=== PATIENT | male | born 1955 | race Caucasian/White ===

== ENCOUNTER 2018-04-16 17:27 | Emergency (ER) | payer MEDICAID ==
[2018-04-16] MEDS ORDERED: Alum Hydrox/Mag Hydrox/Simeth 15 ML, Lidocaine 2% 15 ML PO ONE ×2 (18:18)
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
[2018-04-16] MEDS ORDERED: Sodium Chloride 0.9% 1,000 ML IV SCH (18:30)
[2018-04-16] MEDS: Sodium Chloride 0.9% 10 ML Syringe FLUSH PRN ×2 (18:52→19:34)
[2018-04-16] MEDS ORDERED: Morphine 4 MG/ML Syringe IVPUSH ONE (19:10)
[2018-04-16] MEDS ORDERED: Sodium Chloride 0.9% 80 ML IV SCH (19:15)
[2018-04-16] MEDS ORDERED: Iopamidol 612 MG/ML 150 ML Bottle IV SCH (19:15)
[2018-04-16 19:20] VITALS: BP 145/67
[2018-04-16] MEDS ORDERED: Acetaminophen/HYDROcodone 325-5 MG Tab PO ONE (21:16)
== END 2018-04-16 21:42 | disposition home or self-care (01) ==
LOC: JP.ED 17:27
DX: R10.13 Epigastric pain (principal); I10 Essential (primary) hypertension
CPT/HCPCS: 36415; 74177; 80053; 81001; 83605; 83690; 85025; 85610; 86140; 96361; 96374; 99284; A9270; J2270; J7030; J7050

== ENCOUNTER 2018-04-20 10:29 | Inpatient (IN) | payer MEDICAID ==
[~2018-04-20 10:29] MED LIST: Bupivacaine 0.5%/EPINEPHrine 1:200,000 50 ML MDV ONE
[2018-04-20] MEDS ORDERED: Acetaminophen 500 MG Tab PO ONE (10:30)
[2018-04-20] MEDS ORDERED: Ondansetron 4 MG/2 ML SDV ONE (10:50)
[2018-04-20] MEDS ORDERED: Midazolam 1 MG/ML 2 ML SDV ONE (10:50)
[2018-04-20] MEDS ORDERED: Glycopyrrolate 0.2 MG/ML 5 ML MDV ONE (10:50)
[2018-04-20] MEDS ORDERED: fentaNYL 250 MCG/5 ML SDV ONE (10:50)
[2018-04-20] MEDS ORDERED: Neostigmine Methylsulfate 1 MG/ML 5 ML Syringe ONE (10:50)
[2018-04-20] MEDS ORDERED: Propofol 200 MG/20 ML SDV ONE (10:50)
[2018-04-20] MEDS ORDERED: Dexamethasone 4 MG/ML SDV ONE (10:50)
[2018-04-20] MEDS ORDERED: Rocuronium 50 MG/5 ML Vial ONE (10:50)
[2018-04-20] MEDS ORDERED: Dextrose 5%-Lactated Ringers 1,000 ML IV SCH (11:00)
[2018-04-20] MEDS ORDERED: cefOXitin 2 GM in Sodium Chloride 0.9% 50 ML IV ONE (12:00)
[2018-04-20] MEDS ORDERED: Ketamine 500 MG/5 ML MDV IV SCH (12:15)
[2018-04-20] MEDS ORDERED: Ropivacaine 45 ML, Dexamethasone 8 MG, EPINEPHrine 0.4 MG, Sodium Chloride 0.9% 32.6 ML NERVRT SCH ×4 (12:15)
[2018-04-20] MEDS ORDERED: Meropenem 500 MG SDV ONE (13:01)
[2018-04-20] MEDS ORDERED: HYDROmorphone/Normal Saline 15 MG/30 ML PCA IV PRN (14:31)
[2018-04-20] MEDS ORDERED: Naloxone 0.4 MG/ML SDV IV PRN (14:33)
[2018-04-20] MEDS ORDERED: hydrOXYzine HCl 100 MG/2 ML SDV IM ONE (14:39)
[2018-04-20] MEDS ORDERED: fentaNYL 100 MCG/2 ML SDV IVPUSH ONE (14:45)
[2018-04-20] MEDS ORDERED: Ondansetron 4 MG/2 ML SDV IVPUSH PRN (15:32)
[2018-04-20] MEDS: Pantoprazole 40 MG Vial IV SCH (17:11)
[2018-04-20] MEDS: Meropenem 500 MG in Sodium Chloride 0.9% 50 ML IV SCH ×2 (17:54→23:19)
[2018-04-20] MEDS ORDERED: Lidocaine 2% Jelly 10 ML Urojet MUCMEM ONE (23:23)
[2018-04-20] MEDS: Dextrose 5%-Lactated Ringers 1,000 ML IV SCH (23:28)
[2018-04-21] MEDS: Meropenem 500 MG in Sodium Chloride 0.9% 50 ML IV SCH ×4 (05:34→23:55)
[2018-04-21] MEDS: Dextrose 5%-Lactated Ringers 1,000 ML IV SCH ×2 (08:52→18:05)
[2018-04-21] MEDS: Hydrochlorothiazide 25 MG Tab PO SCH (08:53)
[2018-04-21] MEDS: amLODIPine 5 MG Tab PO SCH (08:53)
[2018-04-21] MEDS: Lisinopril 20 MG Tab PO SCH (08:53)
[2018-04-21] MEDS ORDERED: Tamsulosin 0.4 MG Cap.ER PO ONE (09:00)
[2018-04-21] MEDS: Acetaminophen/HYDROcodone 325-5 MG Tab PO PRN ×3 (10:37→18:24)
--- NOTE | 2018-04-21 11:36 | PN ---
DATE OF SERVICE: 04/21/2018 The patient has been afebrile with stable vital signs. Overnight, he did retain urine and had a Jacobs catheter placed. We will start him on Flomax and then most likely get that out tomorrow morning. Otherwise, he does have some bile in the area of the open-ended point of division of the gallbladder neck, as one might expect drain, that should not be a problem. Bilirubin remains normal. Liver function tests are mildly elevated, consistent with the operative findings. We will move up to a regular diet today and will go over to oral pain medication. Start the Flomax, as noted above. He might be ready for discharge home tomorrow. Gram stain on the abscess thus far did not grow anything. We will continue the meropenem empirically. Baldemar Dorman MD /[id number]
[2018-04-21] MEDS ORDERED: Sodium Chloride 0.9% 250 ML IV SCH (12:00)
[2018-04-21] MEDS: Pantoprazole 40 MG Vial IV SCH (17:09)
[2018-04-21] MEDS ORDERED: Tamsulosin 0.4 MG Cap.ER PO SCH (21:00)
[2018-04-22] MEDS: Acetaminophen/HYDROcodone 325-5 MG Tab PO PRN ×3 (00:51→09:43)
[2018-04-22] MEDS: Dextrose 5%-Lactated Ringers 1,000 ML IV SCH (02:57)
[2018-04-22] MEDS: Meropenem 500 MG in Sodium Chloride 0.9% 50 ML IV SCH (05:26)
[2018-04-22] MEDS: amLODIPine 5 MG Tab PO SCH (08:53)
[2018-04-22] MEDS: Lisinopril 20 MG Tab PO SCH (08:53)
[2018-04-22] MEDS: Hydrochlorothiazide 25 MG Tab PO SCH (08:53)
[2018-04-22 10:53] VITALS: BP 134/65
[2018-04-22] MEDS ORDERED: Magnesium Hydroxide 400 MG/5 ML Susp 30 ML Cup PO PRN (11:03)
[2018-04-22] MEDS ORDERED: Pantoprazole 40 MG Tab.CR PO SCH (16:30)
--- NOTE | 2018-04-25 11:41 | DISCH ---
FINAL DIAGNOSES: 1. Severe acute on chronic cholecystitis and cholelithiasis. 2. Pericholecystic abscess. 3. Inflammatory adherence of gallbladder fundus to hepatic flexure of colon. 4. Incarcerated incisional hernia. 5. History of hypertension. OPERATION/PROCEDURES: Operative procedure was done on 04/20, diagnostic laparoscopy with: 1. Cholecystectomy (subtotal). 2. Drainage of pericholecystic abscess. 3. Repair of deserosalization of hepatic flexure of colon. 4. Repair of incarcerated incisional hernia. SUMMARY: This is a 62-year-old presenting here with biliary colic type symptoms and CT scan showing thickened gallbladder wall and cholelithiasis. On the date of admission, the patient underwent a diagnostic laparoscopy, was found to have incisional hernia at previous laparoscopic trocar site used for an appendectomy in the periumbilical area. The patient had a strikingly severe cholecystitis. This was an acute cholecystitis, but with a significant chronic component such that there was severe scarring and thickening of the gallbladder to the adjacent structures and the cystohepatic triangle area was essentially non dissectible. The patient had pericholecystic abscess, which was drained. The cultures on this are still pending with some cultures presently being prepared. He also had a dense inflammatory adherence of hepatic flexure of the colon to the fundus of the gallbladder. Because of the cystohepatic triangle not being safely dissectible, the patient had a subtotal cholecystectomy leaving the junction of the gallbladder neck as it entered into the cystic duct opening. This was drained with 2 Oscar-Martínez drains. At first, he had some bile present. On postop day 2 today, there is no bile present in either drain. The total bilirubin on postop day 1 was 0.6. Chemistries today are still pending. Overall, the patient has done well at this point, and will be discharged home with both MIRI drains in place. We will see him back on 04/28/2018. He will continue his home medications plus Augmentin 875 mg b.i.d. x5 days and [place] 5/325 mg, 1 to 2 tabs q.4 hours p.r.n. pain, #40. The patient does have an open epigastric trocar site, which was left open due to contamination of the gallbladder being pulled through that area and he will be dressing that daily with 4x4s.
--- NOTE | 2018-04-28 11:10 | OR ---
DATE OF PROCEDURE: 04/20/2018 PREOPERATIVE DIAGNOSIS: Acute cholecystitis. POSTOPERATIVE DIAGNOSES: 1. Severe acute and chronic cholecystitis and cholelithiasis. 2. Pericholecystic abscess. 3. Inflammatory adherence of gallbladder fundus to hepatic flexure of colon. 4. Incarcerated incisional hernia. OPERATIVE PROCEDURE: Diagnostic laparoscopy with: 1. Cholecystectomy (subtotal) (965506). 2. Drainage of pericholecystic abscess (70124). 3. Repair of area of deserosalization of hepatic flexure of colon (17060). 4. Laparoscopic repair of incarcerated incisional hernia ([id number]). ANESTHESIA: General. INDICATION FOR PROCEDURE: This 62-year-old is presenting with a picture of cholecystitis and cholelithiasis. Plan is to proceed with a diagnostic laparoscopy, laparotomy if necessary, and cholecystectomy with other procedures as indicated based on operative findings. Potential risks including bleeding, infection, injury to underlying viscera, problems with stones migrating in the common bile duct requiring additional procedure for correction, possibility of persistent symptoms postoperatively, as well as remote possibility of cardiopulmonary, septic, or hemorrhagic complications leading to were discussed, and the patient wishes to proceed. DETAILS OF PROCEDURE: The patient was taken to the operating room and placed in a supine position. After general endotracheal anesthesia was induced, he was converted to a lithotomy position. Jacobs catheter was inserted and the abdomen prepped and draped. At 15 cm inferior and 5 cm left of xiphoid process, transverse incision was made and the peritoneal cavity entered under direct vision with an Optiview trocar and inflated to 15 mmHg pressure with CO2. Laparoscope was then reinserted. No underlying trocar insertion site injuries were seen. Following this, appearing down toward the umbilicus, the patient was noted to have an incisional hernia. This appeared to be just below the umbilicus itself likely related to previous incision used for laparoscopic appendectomy. This contained some incarcerated preperitoneal fat. Transverse incision over that area was then made and carried down through the skin and subcutaneous tissue and incarcerated component of the hernia and then excised through the defect and a 12 mm trocar was easily passed , and then 2 additional 5 mm trocars were placed in the right subcostal area. Upon appearing up toward the gallbladder, this was entirely encased by omentum. As one pulled the omentum off with the aid of harmonic Scalpel, purulence was noted both anterior to the gallbladder, as well as posterior. Cultures of this were obtained and after the abscess was drained, gallbladder was then opened and as much bile removed as possible. During the course of dissection, it was noted that the patient had essentially fusion of the gallbladder fundus to the hepatic flexure of colon as this was dissected free, there was an obvious area of deserosalization of the colon, which was then repaired with a RUDOLPH stapler, this being a purple load and this subsequently was reinforced also with some fibrin sealant. As one began dissecting down toward the fundus of the gallbladder, it became evident that the entire area of the cystic hepatic triangle and adjacent common bile duct were entirely encased in a dense scar formation indicating this was probably not a first attack of cholecystitis. As one continued to dissect down the gallbladder neck, it became evident that this was completely unsafe given this procedure either via laparoscopic or open approach and we then opted to proceed then with a subtotal cholecystectomy leaving a small amount of gallbladder neck and adjacent cystic duct/gallbladder junction in place. The gallbladder was divided at that level leaving perhaps 0.5 cm rim of gallbladder neck as it joined into the cystic duct. Multiple stones were present and these were sequentially removed. No stones were left in the abdomen at the conclusion of the procedure. No bile leaks were noted at this point. The specimen was then retrieved. The epigastric trocar site and had been widened somewhat to allow removal of the gallbladder. At that point, no further problems were noted per se. At this point, sutures were placed in the fascia at the epigastric trocar site. Total of four sutures were used. These were not tied yet. Then, placement of trocar into the epigastric site where the camera was moved up and the laparoscopic suture passer was then used to repair the incisional hernia located just below the umbilicus, these sutures were then placed with a transverse oriented closure with 0 Vicryl stitch. At that point, 2 Oscar-Martínez drains were then placed one along the area lateral to the liver and the other directly over the area of the gallbladder bed to drain any bile leak that might develop postoperatively, as well as the area of the abscess formation. The trocars were then removed and peritoneal cavity deflated. The sutures of the fascia sites were then closed and the skin at the epigastric site was packed open with iodoform gauze. The umbilical site was felt to be satisfactory to close the skin with 4-0 Vicryl stitch and the drains were affixed with 4-0 Vicryl stitch as well. The patient was taken to the recovery room in satisfactory condition. There were no evident complications. Baldemar Dorman MD /[id number]
== END 2018-04-22 11:45 | disposition home or self-care (01) | DRG 418 ==
LOC: JP.SDSSCHI 10:29 → JP.SDS 10:30 → EDSTATUS 12:00 → JP.MS 15:15
PROVIDERS: ADMIT Surgery; ATTEND Surgery
PROC: 0FB44ZZ Excision of Gallbladder, Percutaneous Endoscopic Approach (ICD-10-PCS; principal; 2018-04-20)
PROC: 0WQF4ZZ Repair Abdominal Wall, Percutaneous Endoscopic Approach (ICD-10-PCS; 2018-04-20)
PROC: 0D9W4ZX Drainage of Peritoneum, Percutaneous Endoscopic Approach, Diagnostic (ICD-10-PCS; 2018-04-20)
PROC: 0DL Gastrointestinal System, Occlusion (ICD-10-PCS; 2018-04-20)
PROC: 0F944ZX Drainage of Gallbladder, Percutaneous Endoscopic Approach, Diagnostic (ICD-10-PCS; 2018-04-20)
DX: K80.12 Calculus of gallbladder with acute and chronic cholecystitis without obstruction (principal); K43.0 Incisional hernia with obstruction, without gangrene; K66.0 Peritoneal adhesions (postprocedural) (postinfection); K82.8 Other specified diseases of gallbladder; I10 Essential (primary) hypertension; H91.90 Unspecified hearing loss, unspecified ear; R33.9 Retention of urine, unspecified; S36.59 Other injury of colon
CPT/HCPCS: 36415; 51702; 80053; 83735; 83880; 84100; 85025; 85027; 87070; 87075; 87205; 88302; 88304; 94762; A9270-GY; C9113; J0171; J0694; J1100; J1170; J2185; J2250; J2405; J2704; J2710; J2795; J3010; J3410; J3490; J7042; J7050

== ENCOUNTER 2020-05-13 13:00 | Emergency (ER) | payer MEDICAID, OTHER ==
[2020-05-13 14:20] VITALS: BP 135/68; PULSE 73
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
[2020-05-13] MEDS ORDERED: Morphine 4 MG/ML Syringe IVPUSH ONE (14:37)
[2020-05-13] MEDS ORDERED: Sodium Chloride 0.9% 10 ML Syringe FLUSH PRN (14:37)
[2020-05-13] MEDS ORDERED: Ondansetron 4 MG/2 ML SDV IVPUSH ONE (14:37)
[2020-05-13] MEDS ORDERED: Acetaminophen/oxyCODONE 325-5 MG Tab PO PRN (16:03)
--- NOTE | 2020-05-14 10:25 | CR ---
Tibia Fibula Lt, CLINICAL HISTORY: Pain, deformity FINDINGS: There is a comminuted displaced fracture of the distal tibia. There is also a slightly displaced fracture of the proximal fibula IMPRESSION: Fractures of proximal fibula and distal tibia Ankle Min 3V Lt FINDINGS: The soft tissues are swollen. There is a comminuted displaced fracture of the distal tibia. There is widening of the ankle mortise. There is a oblique nondisplaced fracture of the distal fibula with some lateral subluxation. IMPRESSION: Fracture dislocation distal tib-fib
== END 2020-05-13 17:09 | disposition home or self-care (01) ==
LOC: JP.ED 14:01
DX: S82.832A Other fracture of upper and lower end of left fibula, initial encounter for closed fracture (principal); S82.302A Unspecified fracture of lower end of left tibia, initial encounter for closed fracture; I10 Essential (primary) hypertension; Z79.899 Other long term (current) drug therapy; V89.9XXA Person injured in unspecified vehicle accident, initial encounter
CPT/HCPCS: 29505; 73590; 73610; 96374; 96375; 99283; A9270; J2270; J2405

== ENCOUNTER 2020-05-16 07:26 | Day surgery (SDC) | payer OTHER ==
[~2020-05-16 07:26] MED LIST changes: +Bupivacaine 0.5% 30 ML SDV ONE; -Bupivacaine 0.5%/EPINEPHrine 1:200,000 50 ML MDV ONE; +Dexamethasone 4 MG/ML SDV ONE; +Glycopyrrolate 0.2 MG/ML 5 ML MDV ONE; +Neostigmine Methylsulfate 1 MG/ML 5 ML Syringe ONE; +Ondansetron 4 MG/2 ML SDV ONE; +Propofol 200 MG/20 ML SDV ONE; +Rocuronium 50 MG/5 ML Vial ONE; +Succinylcholine 200 MG/10 ML MDV ONE
[2020-05-16] MEDS ORDERED: fentaNYL 250 MCG/5 ML SDV ONE (07:28)
[2020-05-16] MEDS ORDERED: Midazolam 1 MG/ML 2 ML SDV ONE (07:43)
[2020-05-16] MEDS ORDERED: Lactated Ringers 1,000 ML IV SCH (07:45)
[2020-05-16] MEDS ORDERED: Nozin Nasal Sanitizer NASBOTH ONE (07:45)
[2020-05-16] MEDS ORDERED: ceFAZolin 2 GM in Premix Bag 1 BAG IV ONE (08:30)
[2020-05-16] MEDS ORDERED: Propofol 200 MG/20 ML SDV ONE ×2 (09:04→09:23)
[2020-05-16] MEDS ORDERED: Lactated Ringers 1,000 ML ONE (09:45)
[2020-05-16] MEDS ORDERED: Acetaminophen/HYDROcodone 325-5 MG Tab PO PRN (10:40)
[2020-05-16] MEDS ORDERED: Acetaminophen/oxyCODONE 325-5 MG Tab PO PRN (10:40)
[2020-05-16] MEDS ORDERED: Aluminum Hydroxide/Magnesium Hydroxide/Simethicone Susp 30 ML Cup PO PRN (10:40)
[2020-05-16] MEDS ORDERED: Magnesium Hydroxide 400 MG/5 ML Susp 30 ML Cup PO PRN (10:40)
[2020-05-16] MEDS ORDERED: Ondansetron 4 MG/2 ML SDV IVPUSH PRN (10:40)
[2020-05-16] MEDS ORDERED: Morphine 2 MG/ML SYRINGE IVPUSH PRN (10:40)
[2020-05-16] MEDS: Sodium Chloride 0.9% 1,000 ML IV SCH ×2 (13:59→22:46)
[2020-05-16] MEDS: ceFAZolin 1 GM in Premix Bag 1 BAG IV SCH ×2 (16:11→23:27)
--- NOTE | 2020-05-16 16:43 | OR ---
DATE OF PROCEDURE: 05/16/2020 SURGEON: Arsen Pierre MD PREOPERATIVE DIAGNOSIS: Comminuted, displaced intra-articular fracture, left tibial plafond, and nondisplaced proximal fibula fracture. POSTOPERATIVE DIAGNOSIS: Comminuted, displaced intra-articular fracture, left tibial plafond, and nondisplaced proximal fibula fracture. PROCEDURE: Open reduction and internal fixation, left distal tibia. ANESTHESIA: Spinal with sedation. INDICATIONS: Mr. Tong is a 64-year-old gentleman who sustained a fall from approximately 4 feet onto his left leg resulting in a comminuted fracture of his left distal tibia. This consists of intra-articular extension with comminution at the junction of the distal shaft and metaphysis in the tibial plafond. Taken to the operating room for open reduction and internal fixation. Risks, benefits, potential complications of the procedure were discussed. DESCRIPTION OF PROCEDURE: After adequate anesthesia was obtained, patient was placed supine with a tourniquet about the left upper thigh. Left leg was prepped and draped in a sterile fashion. Leg was exsanguinated, tourniquet inflated to 300 mmHg pressure. Incision was made slightly medial of midline over the distal tibia and medial malleolus. It was carried down through the subcutaneous tissue. The fracture was identified. Traction was placed on the foot and fracture hematoma was cleared to better visualize the fragments. A small comminuted fragment of the anterior cortex was present, which was devoid of soft tissue attachment. This was initially left in place and manipulated around. Main fracture fragment was reduced and held in place with a bone-holding clamp. The intra- articular fragment was then reduced and held with a clamp. The small cortical piece was manipulated into position and fluoroscopic images were used to assess the reduction. The tibial articular surface was reconstructed well. There was some mild displacement of the more posterior fragment, which could not be directly visualized but did not compromise the overall reduction, and it was felt that attempt at reducing this would require stripping the soft tissues and devascularizing a portion of the bone. A single 3.5 cortical screw was placed anterior posterior, securing the distal fragment and this was placed in compression over drilling the anterior cortex. A Synthes medial distal tibial contoured plate was then selected. This was initially secured distally with locking screws. Proximal fixation was then obtained with 3.5 cortical screws in compression. Excellent fixation was obtained with all of the screws. The wound was irrigated. After evaluating the reduction and comminution, there was some loss of structure of the trabecular bone and this was augmented with crushed cancellous graft. The small cortical fragment which again was free-floating, was not utilized, and was removed as it was completely devascularized and could potentially be a source of nonhealing and sequestration. It was irrigated once again and then closed with 0 Vicryl in the deep layer, 2-0 Vicryl, and surgical malika. The wound was covered with Xeroform, sterile 4x4s, and cast padding, and a well-padded AO plaster splint was applied with the foot in neutral position. The patient tolerated the procedure well. There were no complications. Taken from the operating room in stable condition. Arsen Pierre MD /[id number] MTDD
[2020-05-16] MEDS: Ketorolac 30 MG/ML SDV IVPUSH SCH ×2 (17:42→23:19)
[2020-05-16] MEDS: Docusate Sodium 100 MG Cap PO SCH (20:15)
[2020-05-16] MEDS: oxyCODONE 5 MG Tab PO PRN (23:18)
[2020-05-17] MEDS: Ketorolac 30 MG/ML SDV IVPUSH SCH ×2 (05:10→11:02)
[2020-05-17] MEDS: oxyCODONE 5 MG Tab PO PRN ×2 (08:07→15:26)
[2020-05-17] MEDS: Docusate Sodium 100 MG Cap PO SCH (08:07)
[2020-05-17] MEDS ORDERED: Aspirin 81 MG Tab.EC PO SCH (09:00)
[2020-05-17] MEDS ORDERED: Lisinopril 20 MG Tab PO SCH (09:00)
[2020-05-17] MEDS ORDERED: ATORVASTATIN PO SCH (09:00)
[2020-05-17] MEDS ORDERED: [UNRECOGNIZED DRUG - OTHER] PO SCH (09:00)
[2020-05-17] MEDS ORDERED: AMLODIPINE PO SCH (09:00)
[2020-05-17] MEDS ORDERED: Hydrochlorothiazide 25 MG Tab PO SCH (09:00)
[2020-05-17] MEDS ORDERED: amLODIPine 5 MG Tab PO SCH (09:00)
[2020-05-17 14:26] VITALS: BP 129/61; PULSE 88
== END 2020-05-17 16:00 | disposition home or self-care (01) ==
LOC: JP.SDS 07:26 → JP.MS 10:40 → JP.SDS 05-17 16:00
PROVIDERS: ATTEND Specialist
DX: S82.392A Other fracture of lower end of left tibia, initial encounter for closed fracture (principal); S82.832A Other fracture of upper and lower end of left fibula, initial encounter for closed fracture; Z87.891 Personal history of nicotine dependence; W17.89XA Other fall from one level to another, initial encounter
CPT/HCPCS: 27827; 36415; 80053; 85027; 93005; 93010; 97110; 97116; 97161; 97165; 97530; 97535; A9270; C1713; J0330; J0690; J1885; J2250; J2270; J2704; J3010; J7030; J7120; J1100; J2405; J2710; J3490

== ENCOUNTER 2020-11-14 08:26 | Inpatient (IN) | payer OTHER, MEDICARE ==
[~2020-11-14 08:26] MED LIST changes: -Dexamethasone 4 MG/ML SDV ONE; -Glycopyrrolate 0.2 MG/ML 5 ML MDV ONE; +Midazolam 1 MG/ML 2 ML SDV ONE; -Neostigmine Methylsulfate 1 MG/ML 5 ML Syringe ONE; -Ondansetron 4 MG/2 ML SDV ONE; -Rocuronium 50 MG/5 ML Vial ONE; -Succinylcholine 200 MG/10 ML MDV ONE; +fentaNYL 100 MCG/2 ML SDV ONE
[2020-11-14] MEDS ORDERED: Lactated Ringers 1,000 ML IV SCH (09:00)
[2020-11-14] MEDS ORDERED: ceFAZolin 2 GM in Premix Bag 1 BAG IV ONE (09:00)
[2020-11-14] MEDS ORDERED: Nozin Nasal Sanitizer NASBOTH ONE (09:00)
[2020-11-14] MEDS ORDERED: Propofol 200 MG/20 ML SDV ONE ×5 (11:00→13:30)
[2020-11-14] MEDS ORDERED: fentaNYL 100 MCG/2 ML SDV ONE ×3 (11:29→13:04)
[2020-11-14] MEDS ORDERED: Lactated Ringers 1,000 ML ONE ×2 (13:58)
[2020-11-14] MEDS ORDERED: Ondansetron 4 MG/2 ML SDV IVPUSH PRN (14:15)
[2020-11-14] MEDS ORDERED: Sodium Chloride 0.9% 1,000 ML IV SCH (14:15)
[2020-11-14] MEDS ORDERED: Acetaminophen/HYDROcodone 325-5 MG Tab PO PRN (14:15)
[2020-11-14] MEDS ORDERED: ceFAZolin 1 GM in Sodium Chloride 0.9% 50 ML IV SCH (14:15)
[2020-11-14] MEDS ORDERED: Magnesium Hydroxide 400 MG/5 ML Susp 30 ML Cup PO PRN (14:15)
[2020-11-14] MEDS ORDERED: Gabapentin 300 MG Cap PO SCH (14:30)
[2020-11-14] MEDS: Acetaminophen/oxyCODONE 325-5 MG Tab PO PRN ×2 (16:20→20:14)
[2020-11-14] MEDS: Gabapentin 300 MG Cap PO SCH ×2 (17:08→21:09)
[2020-11-14] MEDS: Morphine 2 MG/ML SYRINGE IVPUSH PRN (18:00)
[2020-11-14] MEDS: ceFAZolin 1 GM in Premix Bag 1 BAG IV SCH (18:01)
[2020-11-14] MEDS ORDERED: Calcium Carbonate 500 MG Tab.Chew PO PRN (20:03)
[2020-11-14] MEDS: Docusate Sodium 100 MG Cap PO SCH (20:18)
[2020-11-14] MEDS: Nozin Nasal Sanitizer NASBOTH SCH (20:34)
[2020-11-15] MEDS: Acetaminophen/oxyCODONE 325-5 MG Tab PO PRN ×5 (00:58→20:08)
[2020-11-15] MEDS: ceFAZolin 1 GM in Premix Bag 1 BAG IV SCH ×2 (01:39→10:41)
[2020-11-15] MEDS: Gabapentin 300 MG Cap PO SCH ×4 (05:18→21:15)
[2020-11-15] MEDS ORDERED: AMLODIPINE PO SCH (09:00)
[2020-11-15] MEDS ORDERED: ATORVASTATIN PO SCH (09:00)
[2020-11-15] MEDS ORDERED: [UNRECOGNIZED DRUG - OTHER] PO SCH (09:00)
[2020-11-15] MEDS: Nozin Nasal Sanitizer NASBOTH SCH ×2 (09:02→20:12)
[2020-11-15] MEDS: Docusate Sodium 100 MG Cap PO SCH ×2 (09:02→20:12)
[2020-11-15] MEDS: Rosuvastatin 10 MG Tab PO SCH (09:02)
[2020-11-15] MEDS: Enoxaparin 30 MG/0.3 ML Syringe SUBCUT SCH (09:03)
[2020-11-15] MEDS: amLODIPine 5 MG Tab PO SCH (09:04)
[2020-11-15] MEDS: Lisinopril 20 MG Tab PO SCH (09:04)
[2020-11-15] MEDS: Acetaminophen 325 MG Tab PO PRN (09:31)
[2020-11-15] MEDS: Morphine 2 MG/ML SYRINGE IVPUSH PRN (10:59)
--- NOTE | 2020-11-15 12:31 | PCM.SURGPN ---
- General Info Date of Service: 11/15/20 Date of Surgery/Procedure: 11/14/20 POD#: 1 Post-Op Diagnosis: Left tibial plafond nonunion fracture ORIF, hardware removal, and L iliac bone graft Functional Status: Reports: Tolerating Diet, Urinating - Review of Systems General: Reports: No Symptoms HEENT: Reports: No Symptoms Pulmonary: Reports: No Symptoms Cardiovascular: Reports: No Symptoms Gastrointestinal: Reports: No Symptoms Genitourinary: Reports: No Symptoms Musculoskeletal: Reports: Leg Pain (left ), Foot Pain (left ), Joint Pain (left hip, left ankle ) Skin: Reports: No Symptoms Neurological: Reports: No Symptoms Psychiatric: Reports: No Symptoms - Patient Data Vitals - Most Recent: Last Vital Signs Temp 100.1 F 11/15/20 11:22 Pulse 77 11/15/20 11:22 Resp 16 11/15/20 11:22 BP 119/55 L 11/15/20 11:22 Pulse Ox 87 L 11/15/20 11:22 Weight - Most Recent: 194 lb I&O - Last 24 Hours: Intake & Output 11/14/20 11/15/20 11/15/20 22:59 06:59 14:59 Intake Total 529 1308 266 Output Total 310 570 100 Balance 219 738 166 Med Orders - Current: Current Medications Acetaminophen (Acetaminophen 325 Mg Tab) 650 mg PO Q4H PRN PRN Reason: Pain/Fever Last Admin: 11/15/20 09:31 Dose: 650 mg Documented by: Hydrocodone Bitart/Acetaminophen (Acetaminophen/Hydrocodone 325-5 Mg Tab) 1 tab PO Q4H PRN PRN Reason: Pain (mild 1-3) Amlodipine Besylate (Amlodipine 5 Mg Tab) 10 mg PO DAILY [facility] Last Admin: 11/15/20 09:04 Dose: 10 mg Documented by: Bandage/Support Products (Nozin Nasal Global Marketing Manager) 1 applic NASBOTH BID [facility] Last Admin: 11/15/20 09:02 Dose: 1 applic Documented by: Calcium Carbonate/Glycine (Calcium Carbonate 500 Mg Tab.Chew) 500 mg PO Q2H PRN PRN Reason: Indigestion Last Admin: 11/14/20 20:14 Dose: 500 mg Documented by: Docusate Sodium (Docusate Sodium 100 Mg Cap) 100 mg PO BID [facility] Last Admin: 11/15/20 09:02 Dose: 100 mg Documented by: Enoxaparin Sodium (Enoxaparin 30 Mg/0.3 Ml Syringe) 30 mg SUBCUT DAILY [facility] Last Admin: 11/15/20 09:03 Dose: 30 mg Documented by: Gabapentin (Gabapentin 300 Mg Cap) 300 mg PO QID [facility] Last Admin: 11/15/20 09:05 Dose: 300 mg Documented by: Sodium Chloride (Normal Saline) 1,000 mls @ 125 mls/hr IV ASDIRECTED [facility] Last Admin: 11/14/20 22:47 Dose: 125 mls/hr Documented by: Lisinopril (Lisinopril 20 Mg Tab) 20 mg PO DAILY [facility] Last Admin: 11/15/20 09:04 Dose: 20 mg Documented by: Magnesium Hydroxide (Magnesium Hydroxide 400 Mg/5 Ml Susp 30 Ml Cup) 30 ml PO BID PRN PRN Reason: Constipation Morphine Sulfate (Morphine 2 Mg/Ml Syringe) 1 mg IVPUSH Q1H PRN PRN Reason: Breakthrough Pain Last Admin: 11/15/20 10:59 Dose: 1 mg Documented by: Ondansetron HCl (Ondansetron 4 Mg/2 Ml Sdv) 4 mg IVPUSH Q4H PRN PRN Reason: Nausea/Vomiting Oxycodone/Acetaminophen (Acetaminophen/Oxycodone 325-5 Mg Tab) 1 - 2 tab PO Q4H PRN PRN Reason: Pain Last Admin: 11/15/20 07:33 Dose: 1 tab Documented by: Rosuvastatin Calcium (Rosuvastatin 10 Mg Tab) 10 mg PO DAILY [facility] Last Admin: 11/15/20 09:02 Dose: 10 mg Documented by: Discontinued Medications Bandage/Support Products (Nozin Nasal Global Marketing Manager) 1 applic NASBOTH ONETIME ONE Stop: 11/14/20 09:01 Last Admin: 11/14/20 09:09 Dose: 1 applic Documented by: Bupivacaine HCl (Bupivacaine 0.5% 30 Ml Sdv) Confirm Administered Dose 30 ml .ROUTE .STK-MED ONE Stop: 11/14/20 07:02 Last Admin: 11/14/20 13:42 Dose: 30 ml Documented by: Fentanyl (Fentanyl 100 Mcg/2 Ml Sdv) Confirm Administered Dose 100 mcg .ROUTE .STK-MED ONE Stop: 11/14/20 08:06 Fentanyl (Fentanyl 100 Mcg/2 Ml Sdv) Confirm Administered Dose 100 mcg .ROUTE .STK-MED ONE Stop: 11/14/20 11:30 Fentanyl (Fentanyl 100 Mcg/2 Ml Sdv) Confirm Administered Dose 100 mcg .ROUTE .STK-MED ONE Stop: 11/14/20 12:09 Fentanyl (Fentanyl 100 Mcg/2 Ml Sdv) Confirm Administered Dose 100 mcg .ROUTE .STK-MED ONE Stop: 11/14/20 13:05 Cefazolin Sodium/Dextrose 2 gm (/ Premix) 50 mls @ 100 mls/hr IV ONETIME ONE Stop: 11/14/20 09:29 Last Admin: 11/14/20 10:20 Dose: 100 mls/hr Documented by: Lactated Ringer's (Ringers, Lactated) 1,000 mls @ 75 mls/hr IV ASDIRECTED [facility] Last Admin: 11/14/20 09:10 Dose: 75 mls/hr Documented by: Lactated Ringer's (Ringers, Lactated) Confirm Administered Dose 1,000 mls @ as directed .ROUTE .STK-MED ONE Stop: 11/14/20 13:59 Lactated Ringer's (Ringers, Lactated) Confirm Administered Dose 1,000 mls @ as directed .ROUTE .STK-MED ONE Stop: 11/14/20 13:59 Cefazolin Sodium/Dextrose 1 gm (/ Premix) 50 mls @ 100 mls/hr IV Q8H [facility] Stop: 11/15/20 10:59 Last Admin: 11/15/20 10:41 Dose: 100 mls/hr Documented by: Midazolam HCl (Midazolam 1 Mg/Ml 2 Ml Sdv) Confirm Administered Dose 2 mg .ROUTE .STK-MED ONE Stop: 11/14/20 08:06 Propofol (Propofol 200 Mg/20 Ml Sdv) Confirm Administered Dose 200 mg .ROUTE .STK-MED ONE Stop: 11/14/20 08:06 Propofol (Propofol 200 Mg/20 Ml Sdv) Confirm Administered Dose 200 mg .ROUTE .STK-MED ONE Stop: 11/14/20 11:01 Propofol (Propofol 200 Mg/20 Ml Sdv) Confirm Administered Dose 200 mg .ROUTE .STK-MED ONE Stop: 11/14/20 11:31 Propofol (Propofol 200 Mg/20 Ml Sdv) Confirm Administered Dose 200 mg .ROUTE .STK-MED ONE Stop: 11/14/20 12:09 Propofol (Propofol 200 Mg/20 Ml Sdv) Confirm Administered Dose 200 mg .ROUTE .STK-MED ONE Stop: 11/14/20 12:49 Propofol (Propofol 200 Mg/20 Ml Sdv) Confirm Administered Dose 200 mg .ROUTE .STK-MED ONE Stop: 11/14/20 13:31 - Exam Wound/Incisions: Dressing Dry and Intact General: Alert, Oriented, Cooperative Extremities: Normal Capillary Refill (left foot ), Joint Swelling, Leg Pain (left ), Limited Range of Motion Skin: Dry, Intact Neurological: No New Focal Deficit Psy/Mental Status: Alert, Normal Affect, Normal Mood Sepsis Event Note - Evaluation Sepsis Screening Result: No Definite Risk - Focused Exam Vital Signs: Vital Signs Temp Temp Pulse Resp BP BP Pulse Ox 11/15/20 11:22 100.1 F 77 16 119/55 L 87 L 11/15/20 10:01 100.1 F 11/15/20 09:04 118/51 L 11/15/20 08:19 99.7 F 83 20 131/57 L 87 L 11/15/20 03:00 98.7 F 77 16 114/51 L 95 - Problem List & Annotations (1) H/O bone graft SNOMED Code(s): 066519893, 365193274 Code(s): Z98.890 - OTHER SPECIFIED POSTPROCEDURAL STATES Status: Acute Current Visit: Yes Annotation/Comment:: L iliac crest autologous bone graft (2) Status post hardware removal SNOMED Code(s): 015988019, 091760182 Code(s): Z98.890 - OTHER SPECIFIED POSTPROCEDURAL STATES Status: Acute Current Visit: Yes Annotation/Comment:: L ankle hardware removal from surgery 05/16/20 (3) Status post ORIF of fracture of ankle SNOMED Code(s): 348161006 Code(s): Z98.890 - OTHER SPECIFIED POSTPROCEDURAL STATES; Z87.81 - PERSONAL HISTORY OF (HEALED) TRAUMATIC FRACTURE Status: Acute Current Visit: Yes Annotation/Comment:: L ankle - Problem List Review Problem List Initiated/Reviewed/Updated: Yes - My Orders Last 24 Hours: Active Orders 24 hr Category Date Time Status Patient Status [ADT] Routine ADT 11/14/20 14:16 Active Antiembolic Devices [RC] .Routine Care 11/14/20 14:17 Active Head of Bed Elevation [RC] ASDIRECTED Care 11/14/20 14:16 Active Intake and Output [RC] QSHIFT Care 11/14/20 14:16 Active May Shower [RC] ASDIRECTED Care 11/14/20 14:16 Active Neurovascular Check [RC] Q4H Care 11/14/20 14:16 Active Oxygen Therapy [RC] .PRN Care 11/14/20 14:16 Active Vital Signs [RC] Q4H Care 11/14/20 14:16 Active Wound Care [RC] Q12H Care 11/14/20 14:16 Active Consult to Physical Therapy [PT Evaluation and Cons 11/15/20 08:45 Active Treatment] [CONS] Routine Regular Diet [DIET] Diet 11/14/20 Lunch Active Acetaminophen [TylenoL] Med 11/14/20 14:15 Active 650 mg PO Q4H PRN Acetaminophen/HYDROcodone [[place] 325-5 MG] Med 11/14/20 14:15 Active 1 tab PO Q4H PRN Acetaminophen/oxyCODONE [Percocet 325-5 MG] Med 11/14/20 14:15 Active 1 - 2 tab PO Q4H PRN Calcium Carbonate [Tums] Med 11/14/20 20:03 Active 500 mg PO Q2H PRN Docusate Sodium [Colace] Med 11/14/20 21:00 Active 100 mg PO BID Enoxaparin [Lovenox] Med 11/15/20 09:00 Active 30 mg SUBCUT DAILY Gabapentin [Neurontin] Med 11/14/20 16:30 Active 300 mg PO QID Magnesium Hydroxide [Milk of Magnesia] Med 11/14/20 14:15 Active 30 ml PO BID PRN Morphine Med 11/14/20 14:15 Active 1 mg IVPUSH Q1H PRN Nozin [ Nasal Global Marketing Manager] Med 11/14/20 21:00 Active 1 applic NASBOTH BID Ondansetron [Zofran] Med 11/14/20 14:15 Active 4 mg IVPUSH Q4H PRN Rosuvastatin [Crestor] Med 11/15/20 09:00 Active 10 mg PO DAILY Sodium Chloride 0.9% [Normal Saline] 1,000 ml Med 11/14/20 14:15 Active IV ASDIRECTED amLODIPine [Norvasc] Med 11/15/20 09:00 Active 10 mg PO DAILY lisinopriL [Prinivil] Med 11/15/20 09:00 Active 20 mg PO DAILY Antiembolic Hose [OM.PC] Routine Oth 11/14/20 14:16 Ordered DVT/VTE Prophylaxis Reflex [OM.PC] Routine Oth 11/14/20 14:16 Ordered Ice Therapy [OM.PC] Per Unit Routine Oth 11/14/20 14:16 Ordered Medication Continuation Instructions [OM.PC] Per Unit Oth 11/14/20 14:16 Ordered Routine Oral Care [OM.PC] Routine Oth 11/14/20 14:16 Ordered Sequential Compression Device [OM.PC] Routine Oth 11/14/20 14:16 Ordered Weight bearing status [OM.PC] Routine Oth 11/14/20 14:22 Ordered Resuscitation Status Routine Resus Stat 11/14/20 14:15 Ordered Medication Orders Acetaminophen (Acetaminophen 325 Mg Tab) 650 mg PO Q4H PRN PRN Reason: Pain/Fever Last Admin: 11/15/20 09:31 Dose: 650 mg Documented by: REGULO Hydrocodone Bitart/Acetaminophen (Acetaminophen/Hydrocodone 325-5 Mg Tab) 1 tab PO Q4H PRN PRN Reason: Pain (mild 1-3) Amlodipine Besylate (Amlodipine 5 Mg Tab) 10 mg PO DAILY [facility] Last Admin: 11/15/20 09:04 Dose: 10 mg Documented by: CAILIN Cosigned by: REGULO Bandage/Support Products (Nozin Nasal Global Marketing Manager) 1 applic NASBOTH BID [facility] Last Admin: 11/15/20 09:02 Dose: 1 applic Documented by: CAILIN Cosigned by: REGULO Admin: 11/14/20 20:34 Dose: 1 applic Documented by: ANASTACIA Calcium Carbonate/Glycine (Calcium Carbonate 500 Mg Tab.Chew) 500 mg PO Q2H PRN PRN Reason: Indigestion Last Admin: 11/14/20 20:14 Dose: 500 mg Documented by: ANASTACIA Docusate Sodium (Docusate Sodium 100 Mg Cap) 100 mg PO BID [facility] Last Admin: 11/15/20 09:02 Dose: 100 mg Documented by: CAILIN Cosigned by: REGULO Admin: 11/14/20 20:18 Dose: 100 mg Documented by: ANASTACIA Enoxaparin Sodium (Enoxaparin 30 Mg/0.3 Ml Syringe) 30 mg SUBCUT DAILY [facility] Last Admin: 11/15/20 09:03 Dose: 30 mg Documented by: CAILIN Cosigned by: REGULO Gabapentin (Gabapentin 300 Mg Cap) 300 mg PO QID [facility] Last Admin: 11/15/20 09:05 Dose: 300 mg Documented by: CAILIN Cosigned by: REGULO Admin: 11/15/20 05:18 Dose: 300 mg Documented by: Admin: 11/14/20 21:09 Dose: 300 mg Documented by: Admin: 11/14/20 17:08 Dose: 300 mg Documented by: REGULO Sodium Chloride (Normal Saline) 1,000 mls @ 125 mls/hr IV ASDIRECTED [facility] Last Admin: 11/14/20 22:47 Dose: 125 mls/hr Documented by: CAROL Lisinopril (Lisinopril 20 Mg Tab) 20 mg PO DAILY [facility] Last Admin: 11/15/20 09:04 Dose: 20 mg Documented by: CAILIN Yuanigned by: REGULO Magnesium Hydroxide (Magnesium Hydroxide 400 Mg/5 Ml Susp 30 Ml Cup) 30 ml PO BID PRN PRN Reason: Constipation Morphine Sulfate (Morphine 2 Mg/Ml Syringe) 1 mg IVPUSH Q1H PRN PRN Reason: Breakthrough Pain Last Admin: 11/15/20 10:59 Dose: 1 mg Documented by: CAILIN Cosigned by: [id number] Admin: 11/14/20 18:00 Dose: 1 mg Documented by: REGULO Ondansetron HCl (Ondansetron 4 Mg/2 Ml Sdv) 4 mg IVPUSH Q4H PRN PRN Reason: Nausea/Vomiting Oxycodone/Acetaminophen (Acetaminophen/Oxycodone 325-5 Mg Tab) 1 - 2 tab PO Q4H PRN PRN Reason: Pain Last Admin: 11/15/20 07:33 Dose: 1 tab Documented by: CAILIN Cosigned by: REGULO Admin: 11/15/20 00:58 Dose: 2 tab Documented by: Admin: 11/14/20 20:14 Dose: 2 tab Documented by: Admin: 11/14/20 16:20 Dose: 2 tab Documented by: REGULO Rosuvastatin Calcium (Rosuvastatin 10 Mg Tab) 10 mg PO DAILY [facility]ac[facility] Admin: 11/15/20 09:02 Dose: 10 mg Documented by: CAILIN Cosigned by: REGULO - Assessment Assessment (Free Text/Narrative):: Patient is a pleasant 65 y/o male, s/p 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 Patient tolerated surgery well with no major complications. Patient has had a difficult time with pain control post-operatively. Reports L hip pain is greater than the pain currently in his ankle. Reports satisfaction with ability to wiggle toes and feel touch to L LE better than he could following his prior L LE operation in April 2020. Patient has been hemodynamically stable. Some low O2 readings requiring 1L oxygen via NC. Patient denied shortness of breath. Tolerating regular diet well with no nausea/emesis. [place] has been discontinued and IV saline locked. Patient is non-weight bearing on the L ankle. Working with physical therapy on ambulation with assistive devices to comply with weight bearing status. Patient reports the pain in L hip is making it difficult to move leg into/out of bed. Due to pain and limited mobility of left leg from pain at this time, requires prolonged hospitalization to get pain under control with PO medications and additional therapy for guiding movement of L leg. Exam: L AO splint remains intact on LE. Minimal drainage on the TELMA wrap. Toes with active motion and appropriate capillary refill. L hip dressing with dried drainage, intact. No surrounding ecchymosis, no warmth to touch. Plan: * Continue with PT services while in the hospital * Goal to wean to PO pain medications to allow for discharge * Anticipate discharge tomorrow, pending pain controlled with PO medications and patient able to safely transfer and ambulate with NWB status on the L LE * AO splint will be removed and re-applied tomorrow prior to discharge. New dressing to hip will also be applied tomorrow by orthopedic provider
[2020-11-16] MEDS: Acetaminophen 325 MG Tab PO PRN (03:38)
[2020-11-16] MEDS: Gabapentin 300 MG Cap PO SCH ×2 (05:21→10:32)
[2020-11-16] MEDS: Acetaminophen/oxyCODONE 325-5 MG Tab PO PRN ×2 (07:25→12:15)
--- NOTE | 2020-11-16 10:00 | PCM.DCSUM1 ---
Discharge Summary - Hospital Course Brief History: Patient is a pleasant 65 y/o male, had a fall in Apr 2020 leading to an ORIF of the left ankle. 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 Patient tolerated surgery well. Was admitted post-operatively for pain management and therapy services. Diagnosis: Stroke: No Modified Payne Scale: No Symptoms at All Modified Jesus Scale Score: 0 - Discharge Data Discharge Date: 11/16/20 Discharge Disposition: Home, Self-Care 01 Condition: Good - Referral to Home Health Date of Face to Face Encounter: 11/16/20 Reason for Homebound Status: order placed for wheelchair, as this is medically necessary for patient to be functional and perform activities of daily living at home, given his current non-weight bearing status of left lower extremity. Primary Care Physician: Arsen Waddell Sr, MD - Discharge Diagnosis/Problem(s) (1) H/O bone graft SNOMED Code(s): 087009807, 989820044 ICD Code: Z98.890 - OTHER SPECIFIED POSTPROCEDURAL STATES Status: Acute Current Visit: Yes Problem Details: L iliac crest autologous bone graft (2) Status post hardware removal SNOMED Code(s): 504282609, 024666879 ICD Code: Z98.890 - OTHER SPECIFIED POSTPROCEDURAL STATES Status: Acute Current Visit: Yes Problem Details: L ankle hardware removal from surgery 05/16/20 (3) Status post ORIF of fracture of ankle SNOMED Code(s): 908332021 ICD Code: Z98.890 - OTHER SPECIFIED POSTPROCEDURAL STATES; Z87.81 - PERSONAL HISTORY OF (HEALED) TRAUMATIC FRACTURE Status: Acute Current Visit: Yes Problem Details: L ankle - Patient Summary/Data Consults: Consultations 11/15/20 08:45 Consult to Physical Therapy [PT Evaluation and Treatment] [CONS] Routine Please Evaluate and Treat. PT Reason for Consult: ORIF L tibia. NWB left leg Pending Discharge: Yes This query below is only for informational purposes and is not editable. Admission Diagnosis/Problem: Ankle joint pain Hospital Course: Patient is a pleasant 65 y/o male, had a fall in Apr 2020 leading to an ORIF of the left ankle. Patients recovery was complicated with wound infection, neuropathy, and nonunion. 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 Patient tolerated surgery well. Struggled with pain management post-operatively and was admitted for pain control and additional therapy services to be safe for discharge to home. By POD#2, patients pain was well controlled with PO medications. Patient reports the most pain is in his left hip where the bone graft was harvested. States the ankle is also painful, but much less than what he was expecting. Feels his progress with wiggling toes and having sensation in the foot is significantly better than what he had following his previous ankle surgery and is optimistic about recovery. Patient has been tolerating regular diet well with no nausea/emesis. Jacobs removed POD#1, IV Saline locked POD#1. Patient has been hemodynamically stable throughout stay. Has used 1-2.5 L O2 via NC intermittently to keep oxygen saturation above 90. Successfully weaned to room air prior to discharge. Also had a temperature of 101.5 early in the morning of POD#2. Temperature has since trended down and remained within acceptable limits. Patient denied subjective fever, chills, nor shortness of breath. Has been using incentive spirometer throughout hospital stay. Patient worked with physical therapy on non-weight bearing status for left lower extremity; pain in left hip and ankle limit ability to ambulate with crutches or walker with his non-weight bearing status safely. Due to these mobility limitations, patient is unable to perform activities of daily living safely with just crutches or a walker, he will require a wheelchair to be safe and functional at home. Does have spouse at home to assist with wheelchair. AO splint with dried drainage on TELMA wrap near incision site; this splint was removed on POD#2 and a new AO splint applied prior to discharge. New left hip dressing applied. Exam: Left ankle incisions intact with malika with no surrounding erythema, ecchymosis, nor active drainage. Very mild left pedal edema. Mild warmth to touch of left lower extremity. Left hip incision intact with no active drainage, nor surrounding erythema. Left lower extremity neurovascular intact. - Patient Instructions Diet: Usual Diet as Tolerated Activity: Apply Ice, As Tolerated, Non Weight Bearing (on left lower extremity ), No Strenuous Activities, Rest and Relax Today Driving: Do Not Drive Showering/Bathing: May Shower (but wrap L leg splint; do not get this wet. Okay to remove L hip dressing and have shower water run over this incision) Wound/Incision Care: Keep Operative Site/Wound Site Clean and Dry Notify Provider of: Fever, Increased Pain, Swelling and Redness, Drainage - Discharge Plan *PRESCRIPTION DRUG MONITORING PROGRAM REVIEWED*: Yes *COPY OF PRESCRIPTION DRUG MONITORING REPORT IN PATIENT ROSS: Not Applicable Prescriptions/Med Rec: Acetaminophen/oxyCODONE [Percocet 325-5 MG] 1 - 2 each PO Q6HR PRN 7 Days #50 tab PRN Reason: Pain (Severe 7-10) Home Medications: Home Meds Gabapentin [Neurontin] 300 mg PO Q6HR 11/14/20 [History] Rosuvastatin [Crestor] 10 mg PO DAILY 11/14/20 [History] amLODIPine Besylate [Amlodipine Besylate] 10 mg PO DAILY 11/14/20 [History] lisinopriL [Lisinopril] 20 mg PO DAILY 11/14/20 [History] traMADol [Ultram] 50 mg PO Q4H PRN 11/14/20 [History] Acetaminophen/oxyCODONE [Percocet 325-5 MG] 1 - 2 each PO Q6HR PRN 7 Days #50 tab 11/16/20 [Rx] Oxygen Therapy Mode: Room Air Patient Handouts: Preventing Constipation After Surgery Referrals: Arsen Pierre MD [Physician] - 11/29/20 9:00 am (Please arrive 15 minutes early to register for your appointment) - Discharge Summary/Plan Comment DC Time >30 min.: No Discharge Summary/Plan Comment: * Anticipate discharge to home today. * Patient encouraged to monitor temperature at home; education provided on post- operative fevers, SSIs, and DVT/VTEs. Follow up parameters discussed with patient. * Order form completed for wheelchair order; this is medically necessary for patient to be safe and functional at home, given current mobility limitations. * Patient to remain non-weight bearing on left lower extremity until seen by orthopedic provider at 2 week follow up apt. * New AO splint applied to left lower extremity; this is to remain on and dry until seen by orthopedic provider at 2 week follow up apt. Okay to remove hip dressing. * Patient to take Aspirin BID for DVT prophylaxis; patient may take either 81 mg or 325 mg dose. * Patient to continue with Nozin spray. * 1 week supply of pain medication sent to pharmacy. * Patient encouraged to call with any concerns or questions that arise prior to scheduled apt. Patient expressed understanding of above plan. - General Info Date of Service: 11/16/20 Admission Dx/Problem (Free Text: nonunion of left tibial plafond fracture Functional Status: Reports: Pain Controlled, Tolerating Diet, Urinating - Review of Systems General: Reports: No Symptoms HEENT: Reports: No Symptoms Pulmonary: Reports: No Symptoms Cardiovascular: Reports: No Symptoms Gastrointestinal: Reports: No Symptoms Genitourinary: Reports: No Symptoms Musculoskeletal: Reports: Leg Pain (left) Skin: Reports: No Symptoms Neurological: Reports: No Symptoms Psychiatric: Reports: No Symptoms - Patient Data Vitals - Most Recent: Last Vital Signs Temp 98.2 F 11/16/20 07:00 Pulse 89 11/16/20 07:00 Resp 16 11/16/20 07:00 BP 109/50 L 11/16/20 07:00 Pulse Ox 95 11/16/20 07:00 Weight - Most Recent: 194 lb 0.003 oz I&O - Last 24 hours: Intake & Output 11/15/20 11/16/20 11/16/20 22:59 06:59 14:59 Intake Total 400 Output Total 800 Balance -400 Med Orders - Current: Current Medications Acetaminophen (Acetaminophen 325 Mg Tab) 650 mg PO Q4H PRN PRN Reason: Pain/Fever Last Admin: 11/16/20 03:38 Dose: 650 mg Documented by: Hydrocodone Bitart/Acetaminophen (Acetaminophen/Hydrocodone 325-5 Mg Tab) 1 tab PO Q4H PRN PRN Reason: Pain (mild 1-3) Amlodipine Besylate (Amlodipine 5 Mg Tab) 10 mg PO DAILY [facility] Last Admin: 11/15/20 09:04 Dose: 10 mg Documented by: Bandage/Support Products (Nozin Nasal Irrigation Teacher) 1 applic NASBOTH BID [facility] Last Admin: 11/15/20 20:12 Dose: 1 applic Documented by: Calcium Carbonate/Glycine (Calcium Carbonate 500 Mg Tab.Chew) 500 mg PO Q2H PRN PRN Reason: Indigestion Last Admin: 11/14/20 20:14 Dose: 500 mg Documented by: Docusate Sodium (Docusate Sodium 100 Mg Cap) 100 mg PO BID [facility] Last Admin: 11/15/20 20:12 Dose: 100 mg Documented by: Enoxaparin Sodium (Enoxaparin 30 Mg/0.3 Ml Syringe) 30 mg SUBCUT DAILY [facility] Last Admin: 11/15/20 09:03 Dose: 30 mg Documented by: Gabapentin (Gabapentin 300 Mg Cap) 300 mg PO QID [facility] Last Admin: 11/16/20 05:21 Dose: 300 mg Documented by: Sodium Chloride (Normal Saline) 1,000 mls @ 125 mls/hr IV ASDIRECTED [facility] Last Admin: 11/14/20 22:47 Dose: 125 mls/hr Documented by: Lisinopril (Lisinopril 20 Mg Tab) 20 mg PO DAILY [facility] Last Admin: 11/15/20 09:04 Dose: 20 mg Documented by: Magnesium Hydroxide (Magnesium Hydroxide 400 Mg/5 Ml Susp 30 Ml Cup) 30 ml PO BID PRN PRN Reason: Constipation Morphine Sulfate (Morphine 2 Mg/Ml Syringe) 1 mg IVPUSH Q1H PRN PRN Reason: Breakthrough Pain Last Admin: 11/15/20 10:59 Dose: 1 mg Documented by: Ondansetron HCl (Ondansetron 4 Mg/2 Ml Sdv) 4 mg IVPUSH Q4H PRN PRN Reason: Nausea/Vomiting Oxycodone/Acetaminophen (Acetaminophen/Oxycodone 325-5 Mg Tab) 1 - 2 tab PO Q4H PRN PRN Reason: Pain Last Admin: 11/16/20 07:25 Dose: 2 tab Documented by: Rosuvastatin Calcium (Rosuvastatin 10 Mg Tab) 10 mg PO DAILY [facility] Last Admin: 11/15/20 09:02 Dose: 10 mg Documented by: Discontinued Medications Bandage/Support Products (Nozin Nasal Irrigation Teacher) 1 applic NASBOTH ONETIME ONE Stop: 11/14/20 09:01 Last Admin: 11/14/20 09:09 Dose: 1 applic Documented by: Bupivacaine HCl (Bupivacaine 0.5% 30 Ml Sdv) Confirm Administered Dose 30 ml .ROUTE .STK-MED ONE Stop: 11/14/20 07:02 Last Admin: 11/14/20 13:42 Dose: 30 ml Documented by: Fentanyl (Fentanyl 100 Mcg/2 Ml Sdv) Confirm Administered Dose 100 mcg .ROUTE .STK-MED ONE Stop: 11/14/20 08:06 Fentanyl (Fentanyl 100 Mcg/2 Ml Sdv) Confirm Administered Dose 100 mcg .ROUTE .STK-MED ONE Stop: 11/14/20 11:30 Fentanyl (Fentanyl 100 Mcg/2 Ml Sdv) Confirm Administered Dose 100 mcg .ROUTE .STK-MED ONE Stop: 11/14/20 12:09 Fentanyl (Fentanyl 100 Mcg/2 Ml Sdv) Confirm Administered Dose 100 mcg .ROUTE .STK-MED ONE Stop: 11/14/20 13:05 Cefazolin Sodium/Dextrose 2 gm (/ Premix) 50 mls @ 100 mls/hr IV ONETIME ONE Stop: 11/14/20 09:29 Last Admin: 11/14/20 10:20 Dose: 100 mls/hr Documented by: Lactated Ringer's (Ringers, Lactated) 1,000 mls @ 75 mls/hr IV ASDIRECTED [facility] Last Admin: 11/14/20 09:10 Dose: 75 mls/hr Documented by: Lactated Ringer's (Ringers, Lactated) Confirm Administered Dose 1,000 mls @ as directed .ROUTE .STK-MED ONE Stop: 11/14/20 13:59 Lactated Ringer's (Ringers, Lactated) Confirm Administered Dose 1,000 mls @ as directed .ROUTE .STK-MED ONE Stop: 11/14/20 13:59 Cefazolin Sodium/Dextrose 1 gm (/ Premix) 50 mls @ 100 mls/hr IV Q8H [facility] Stop: 11/15/20 10:59 Last Admin: 11/15/20 10:41 Dose: 100 mls/hr Documented by: Midazolam HCl (Midazolam 1 Mg/Ml 2 Ml Sdv) Confirm Administered Dose 2 mg .ROUTE .STK-MED ONE Stop: 11/14/20 08:06 Propofol (Propofol 200 Mg/20 Ml Sdv) Confirm Administered Dose 200 mg .ROUTE .STK-MED ONE Stop: 11/14/20 08:06 Propofol (Propofol 200 Mg/20 Ml Sdv) Confirm Administered Dose 200 mg .ROUTE .STK-MED ONE Stop: 11/14/20 11:01 Propofol (Propofol 200 Mg/20 Ml Sdv) Confirm Administered Dose 200 mg .ROUTE .STK-MED ONE Stop: 11/14/20 11:31 Propofol (Propofol 200 Mg/20 Ml Sdv) Confirm Administered Dose 200 mg .ROUTE .STK-MED ONE Stop: 11/14/20 12:09 Propofol (Propofol 200 Mg/20 Ml Sdv) Confirm Administered Dose 200 mg .ROUTE .STK-MED ONE Stop: 11/14/20 12:49 Propofol (Propofol 200 Mg/20 Ml Sdv) Confirm Administered Dose 200 mg .ROUTE .STK-MED ONE Stop: 11/14/20 13:31 - Exam General: Reports: Alert, Oriented, Cooperative, No Acute Distress Extremities: Leg Pain (left ), Limited Range of Motion Skin: Reports: Dry, Intact Wound/Incisions: Reports: Dressing Dry and Intact, No Drainage Neurological: Reports: No New Focal Deficit Psy/Mental Status: Reports: Alert, Normal Affect, Normal Mood
[2020-11-16] MEDS: Rosuvastatin 10 MG Tab PO SCH (10:32)
[2020-11-16] MEDS: Enoxaparin 30 MG/0.3 ML Syringe SUBCUT SCH (10:34)
[2020-11-16] MEDS: Docusate Sodium 100 MG Cap PO SCH (10:34)
[2020-11-16] MEDS: amLODIPine 5 MG Tab PO SCH (10:35)
[2020-11-16] MEDS: Nozin Nasal Sanitizer NASBOTH SCH (10:40)
[2020-11-16] MEDS: Lisinopril 20 MG Tab PO SCH (10:40)
[2020-11-16 11:25] VITALS: BP 124/61; PULSE 84
== END 2020-11-16 13:25 | disposition home or self-care (01) | DRG 560 ==
LOC: JP.SDS 08:26 → JP.MS 14:16 → JP.SDS 11-15 15:40
PROVIDERS: ADMIT Specialist; ATTEND Specialist
DX: Z47.2 Encounter for removal of internal fixation device (principal); S82.892K Other fracture of left lower leg, subsequent encounter for closed fracture with nonunion; Z47.89 Encounter for other orthopedic aftercare; W19.XXXD Unspecified fall, subsequent encounter; Z98.890 Other specified postprocedural states; Z87.81 Personal history of (healed) traumatic fracture; Z79.899 Other long term (current) drug therapy; I10 Essential (primary) hypertension; K21.9 Gastro-esophageal reflux disease without esophagitis; J40 Bronchitis, not specified as acute or chronic; Z90.49 Acquired absence of other specified parts of digestive tract
CPT/HCPCS: 36415; 76000; 80053; 85027; 97161-GP; 97535-GP; A9270-GY; C1713; J0690; J1650; J2250; J2270; J2704; J3010; J3490; J7030; J7120

== ENCOUNTER 2021-03-28 07:22 | Day surgery (SDC) | payer MEDICARE ==
[~2021-03-28 07:22] MED LIST changes: -Bupivacaine 0.5% 30 ML SDV ONE
[2021-03-28] MEDS ORDERED: Sodium Chloride 0.9% 1,000 ML IV SCH (08:00)
[2021-03-28] MEDS ORDERED: Propofol 200 MG/20 ML SDV ONE (08:13)
[2021-03-28 09:25] VITALS: PULSE 51
[2021-03-28 09:46] VITALS: BP 122/66
--- NOTE | 2021-03-28 10:25 | PROC ---
DATE OF PROCEDURE: 03/28/2021 SURGEON: Arsen Waddell MD INDICATIONS: Matt is a 65-year-old male who had a positive Cologuard test. The risks and benefits were explained for a colonoscopy which was done in the OR. PROCEDURE IN DETAIL: Anesthesia was given by nurse service center specialist. During the procedure, we used 2 mg of Versed, 100 mcg of fentanyl, and 400 mg of propofol. The Olympus 180L scope was used. With a gloved finger, the rectum was examined and tube was placed into the rectum and advanced under direct vision. We did get to the cecum with some external pressure on the abdomen. There was a small lesion noted at the cecum. This was biopsied, it appeared benign. With slow retraction of the tube, noted infrequent diverticula. No other lesions were noted throughout the entire colon. The tube was removed. The patient tolerated the procedure well. PREOPERATIVE DIAGNOSIS: Positive Cologuard. POSTOPERATIVE DIAGNOSIS: 1. Small lesion noted at the cecum. Biopsy report is pending. 2. Infrequent diverticula. Arsen Waddell MD /[id number]
== END 2021-03-28 10:33 | disposition home or self-care (01) ==
LOC: JP.SDS 07:22
PROVIDERS: ATTEND Internal Medicine
DX: D12.0 Benign neoplasm of cecum (principal); K57.30 Diverticulosis of large intestine without perforation or abscess without bleeding; I10 Essential (primary) hypertension; E78.5 Hyperlipidemia, unspecified
CPT/HCPCS: 45380; 88305; J2250; J2704; J3010; J7030